=== PATIENT | female | born 1990 | race Two or more races ===

== ENCOUNTER 2025-02-02 08:28 | Outpatient (AMB) | payer MEDICAID, SELFPAY ==
[2025-02-02 08:39] VITALS: BP 105/70; PULSE 72; RESP 17; TEMP 36.3; O2SAT 98; BMI 19.2
--- NOTE | 2025-02-02 08:39 | OBCLNT_ITS ---
Vital Signs 02/02/25 08:39 Height 1.73 m Height Method Stated Weight 57.379 kg Weight Measurement Method Standing Scale BMI 19.2 BP 105/70 Blood Pressure Source Automatic Cuff Blood Pressure Location Right Upper Arm Position Sitting Respiration 17 Pulse 72 Pulse Source Monitor Temp 97.4 F Temp Source Temporal Artery Scan Pulse Oximetry (%) 98 Oxygen Delivery Method Room Air Allergies/Home Meds Allergies & Medications Allergies No Known Allergies Allergy (Verified 02/02/25 09:04) Medication Reconciliation Unobtainable 02/02/25 [History Confirmed 02/02/25] Intake Visit Data Collection New Patient or Established: New Patient (never been to [facility]) Reason for Visit:: OBI TRANSFER Seen by Clinical Staff ONLY (RN/MA): No Color Printer Operator Required: No Do You Feel Safe at Home: Yes Authorities Contacted: N/A PCP or OBGYN visit in last 3 months: No Hx Now: Yes Are you currently on any form of Control: No Last menstrual period: 05/27/24 Pain Present Currently: No Pain Scale Used: Kirkland-Cardona/Numerical Pain scale:: 0 Smoking Status Smoking Status: Never smoker Questionnaires Covid-19 Vaccine Questionnaire Has patient been vacinated for Covid-19 Have you been vacinated for Covid-19: No PHQ-9 PHQ-2 Over the last 2 weeks, how often have you been bothered by any of the following problems? 1. Little interest or pleasure in doing things: not at all 2. Feeling down, depressed, or hopeless: not at all Total score: 0 PHQ-9 3. Trouble falling or staying asleep, or sleeping too much: Not at all 4. Feeling tired or having little energy: Not at all 5. Poor appetite or overeating: Not at all 6. Feeling bad about yourself - or that you are a failure or have let yourself or your family down: Not at all 7. Trouble concentrating on things, such as reading the newspaper or watching television: Not at all 8. Moving or speaking so slowly that other people could have noticed? - Or the opposite - being so fidgety or restless that you have been moving around a lot more than usual: not at all 9. Thoughts that you would be better off or of hurting yourself in some way: Not at all Total score: 0 If you checked off any problems, how difficult have these problems made it for you to do your work, take care of things at home, or get along with other people?: not difficult at all Source: Developed by Drs. Tray Mistry, Kristine Linda, Darrick Montana and colleagues, with an educational charanjit from [employer]. Depression screen completed yes Social History Living Situation History Marital Status: Lives With: Family Housing: House Tobacco History Smoking Status: Never smoker Second Hand Smoke Exposure: No Domestic Abuse History Do You Feel Safe at Home: Yes History of Present Illness HPI Narrative This is a 34-year-old 2 para [address] Luther's office. Patient started care at 8 weeks. History of a previous section x 1 in [place] I asked the reason about that and the father had relayed to me that all women in [place] have . Patient is taking levothyroxine 50 mg daily for hypothyroid. Denies social habits. And patient reports she has not had any complications with the . Last menses is May 27, 2024. EDC March 03, 2025. First ultrasound was August 03, 2024. Patient was 9 weeks 2 and this confirmed dates. She also had a 25-week ultrasound November second 2024. Patient was 25 weeks 5 and this confirmed dates as well patient is O+, antibody screen negative, RPR nonreactive, rubella immune, hepatitis B negative, HIV negative, hep C negative, patient is rubella immune. Her GC and Chlamydia were negative. A1c 5.6. Her screenings for cystic fibrosis NIPT and AFP were negative. 1 hour was normal. GBS will be done today. Patient states that her last ultrasound at [facility] was January 16 and I called for those results. TSH normal, , T$: 16 OB Initial Visit OB Flowsheet OB Flowsheet Initial Weight: Not Recorded Date -?-?-?-?-?-?-?-?-?-?-?-?- EGA Weight BP Alb Glu CTX Pres Fundal ht FHR Mov Dilation Station Effacement Hx Notes Visit Note 02/02/25 -?-?-?-?-?-?-?-?-?-?-?-?- 35w 4d 57.379 kg 105/70 absent cephalic 35 145 active 34-year-old 2 para 1 for OBI. Patient is a transfer from Dr. Luther's office. Last menses was May 29, 2024. That makes EDC March 03, 2025. Patient has had several ultrasounds including 9-week ultrasound to confirm that. Previous section x 1 in [place]. The and the patient did not know why except to say that other women in [place] have C-sections. Patient has a history of hypothyroid. Her TSH was normal. T4 was little elevated. She is taking 50 mcg of levothyroxine daily. Denies leaking or bleeding. Reports good movement. And patient has no other complaints. GBS tod ay, schedule with OB to schedule repeat c/s. discuss labor precaution, fkc BID and ER precaution. continue PNV and levothyroxine 50 mg daily. RTC 1 week ob check Menstrual History Menstrual reliability: definite Flow: normal Menstrual regularity: regular Monthly: Yes Age at menarche: 14 On control pills at conception: No OB History : 4 Para: 1 Hx Total # of Abortions (Spontaneous & Elective): 2 # of Living Children: 1 Delivery History 1st : sex: male Delivery type: Infection History & Risk Evaluation History of STDs: none HIV risk evaluation: low risk Hepatitis B risk evaluation: low risk Varicella/chicken pox status: unknown Genetic Screening & History Genetic Screening/Teratology Counseling - Includes patient, baby's father, or anyone in either family with: 1. Patient's age 35 years or older as of estimated date of delivery: No 2. Thalassemia (Andorran, Citizen Of [place], Mediterranean, or Background); MCV less than 80: No 3. Neural Tube Defect (Meningomyelocele, Spina Bifida, or Anencephaly): No 4. Congenital Heart Defect: No 5. Down Syndrome: No 6. Jovany-Sachs (Ashkenazi Baptist, Cajun, Lao Vermilion): No 7. Ester Disease (Ashkenazi Baptist): No 8. Familial Dysautonomia (Ashkenazi Baptist): No 9. Sickle Cell Disease or Trait (): No 10. Hemophilia or other blood disorders: No 11. Muscular Dystrophy: No 12. Cystic Fibrosis: No 13. Ogden's Chorea: No 14. Mental Retardation/Autism: No 15. Other inherited genetic or chromosomal disorder: No 16. Maternal Metabolic Disorder (EG,TYPE 1 Diabetes, PKU): No 17. Patient or baby's father had a child with defects not listed above: No 18. Recurrent loss or a stillbirth: No 19. Medications (including supplements, vitamins, herbs or otc drugs)/illicit/recreational drugs/alcohol since last menstrual period: No 20. Any other: No Infection History 1. Live with someone with TB or exposed to TB: No 2. Rash or viral illness since last menstrual period: No 3. Hepatitis B,C: No Other (see comments) Source: [employer] Review of Systems Review of Systems Systems Reviewed: All systems reviewed, normal except as documented Exam Narrative Physical exam: low transverse skin incision General Limitations: no limitations General Appearance: alert, in no apparent distress, comfortable, cooperative, healthy appearing, well developed and well groomed Head Head exam: atraumatic, normocephalic and normal inspection Chest Chest inspection: Present normal inspection and symmetric chest wall rise Resp Respiratory exam: Present normal lung sounds bilaterally Card Cardiovascular exam: Present regular rate, normal rhythm and normal heart sounds Abdominal Abdominal exam: Present soft and normal bowel sounds Psych Psychiatric exam: Present normal affect and normal mood Office Procedures OB Clinic LOC & Office Proc's Nursing/Assessment Patient Status: Initial/New Patient OB Clinic Nursing Assessment: Medication Reconciliation, Update PMH in EMR and Vital Signs OB Clinic Coordination of Care: Complex Care and Chronic Disease 1-5, Consent,records obtained, informed consent, Education Simp Pt/Fam, Lab and Imaging orders, Results/Orders obtained and Staff clarify orders Special Needs: Heart tones New Patient Charge New Patient Point Assignment: [id number] New Patient Point Charge: PHYSIOLOGIST Level 4 ([id number]) Assessment & Plan Diagnosis / Problem List (1) Encounter for care in third trimester of first : Status: Acute (2) Encounter for maternal care for low transverse scar from previous delivery: Status: Acute (3) : Status: Acute Plan Discussed kick count with patient. Discussed labor precautions with patient. Schedule with OB next visit to schedule section reviewed chart and labs with patient. GBS today return in 1 week Additional Plan Follow Up: 1 Week (obc)
== END 2025-02-02 09:00 | disposition home or self-care (01) ==
PROVIDERS: Supervising Provider Obstetrics & Gynecology; Visit Provider Obstetrics & Gynecology
DX: O09.293 Supervision of pregnancy with other poor reproductive or obstetric history, third trimester (principal); O34.211 Maternal care for low transverse scar from previous cesarean delivery; O09.893 Supervision of other high risk pregnancies, third trimester; O99.283 Endocrine, nutritional and metabolic diseases complicating pregnancy, third trimester; E03.9 Hypothyroidism, unspecified; Z3A.35 35 weeks gestation of pregnancy; Z36.85 Encounter for antenatal screening for Streptococcus B; Z79.890 Hormone replacement therapy
CPT/HCPCS: 99204; G0463

== ENCOUNTER 2025-02-08 09:53 | Outpatient (AMB) | payer MEDICAID, SELFPAY ==
[2025-02-08 10:14] VITALS: BP 106/73; PULSE 65; RESP 17; TEMP 36.2; O2SAT 99; BMI 19.1
--- NOTE | 2025-02-08 10:14 | AMB.OBVISIT ---
Vital Signs 02/08/25 10:14 Height 1.73 m Height Method Measured Weight 57.379 kg Weight Measurement Method Standing Scale BMI 19.1 BP 106/73 Blood Pressure Source Automatic Cuff Blood Pressure Location Right Upper Arm Position Sitting Respiration 17 Pulse 65 Pulse Source Monitor Temp 97.2 F Temp Source Temporal Artery Scan Pulse Oximetry (%) 99 Oxygen Delivery Method Room Air Allergies/Home Meds Allergies & Medications Allergies No Known Allergies Allergy (Verified 02/08/25 10:15) Medication Reconciliation Unobtainable 02/02/25 [History Confirmed 02/08/25] Intake Visit Data Collection New Patient or Established: Established Patient (seen at [facility] within 3 years) Reason for Visit:: OBC Consent obtained for Telemed Visit: No Seen by Clinical Staff ONLY (RN/MA): No Plating Foreman Required: No Do You Feel Safe at Home: Yes Authorities Contacted: N/A PCP or OBGYN visit in last 3 months: Yes Hx Now: Yes Are you currently on any form of Control: No Pain Present Currently: No Pain Scale Used: Kirkland-Cardona/Numerical Pain scale:: 0 Smoking Status Smoking Status: Never smoker Questionnaires Covid-19 Vaccine Questionnaire Has patient been vacinated for Covid-19 Have you been vacinated for Covid-19: No PHQ-9 PHQ-2 Over the last 2 weeks, how often have you been bothered by any of the following problems? 1. Little interest or pleasure in doing things: not at all PHQ-9 8. Moving or speaking so slowly that other people could have noticed? - Or the opposite - being so fidgety or restless that you have been moving around a lot more than usual: not at all Source: Developed by Drs. Tray Mistry, Kristine Linda, Darrick Montana and colleagues, with an educational charanjit from [employer] ([employer]). Social History Living Situation History Lives With: Family Housing: House Tobacco History Smoking Status: Never smoker Second Hand Smoke Exposure: No Alcohol History Alcohol Intake: Never Domestic Abuse History Do You Feel Safe at Home: Yes History of Present Illness HPI Narrative The patient is a 34-year-old -0-1-1 history of x 1 in [place] about 2 years ago. Patient's states it was due to IVF. She had 1 miscarriage. She is currently 36 to 37 weeks . Patient understands some Guyanese her is translating for her. Care OB Visit Log OB Flowsheet Initial Weight: Not Recorded Date <del>?</del> EGA Weight BP Alb Glu CTX Pres Fundal ht FHR Mov Dilation Station Effacement Hx Notes Visit Note 02/02/25 <del>?</del> 35w 4d 57.379 kg 105/70 absent cephalic 35 145 active 34-year-old 2 para 1 for OBI. Patient is a transfer from Dr. Luther's office. Last menses was May 29, 2024. That makes EDC March 03, 2025. Patient has had several ultrasounds including 9-week ultrasound to confirm that. Previous section x 1 in [place]. The and the patient did not know why except to say that other women in [place] have C-sections. Patient has a history of hypothyroid. Her TSH was normal. T4 was little elevated. She is taking 50 mcg of levothyroxine daily. Denies leaking or bleeding. Reports good movement. And patient has no other complaints. GBS today, schedule with OB to schedule repeat c/s. discuss labor precaution, fkc BID and ER precaution. continue PNV and levothyroxine 50 mg daily. RTC 1 week ob check 02/08/25 <del>?</del> 36w 3d 57.379 kg 106/73 absent cephalic 37 146 active Positive movement, no contractions, no loss of fluids Schedule repeat 02/24/2025 AQUILES Calculator Estimated Delivery Date Method Current WG Current Estimate 03/05/25 LMP (Certain) 36w 3d Other Estimates 03/09/25 Ultrasound #2 35w 6d Notes Visit Date: 02/08/25 Last Updated by: Clemencia Maria (OB Clinic)MD Good movement no loss of fluids no contractions. Will schedule with myself 02/24/2025. Due date 03/03/2025. Need results of [facility] ultrasound from end of December. Visit Date: 02/02/25 Last Updated by: Linda Buchanan, JOSEY 34 yo , c/s x1. EDC 03/03/25. ob panel: O+,abs-, RPR::NR, rub imm, hbsag-, HIV-,HC-, GC/CT-, 1hr gtt: 120, A1: 5.2, NIPT/AFP and carrier screen- Office Procedures OB Clinic LOC & Office Proc's Nursing/Assessment Patient Status: Established Patient OB Clinic Nursing Assessment: Medication Reconciliation, Update PMH in EMR and Vital Signs OB Clinic Coordination of Care: Complex Care and Chronic Disease 1-5, Consent,records obtained, informed consent, Education Simp Pt/Fam and 4+ Authorizations needed Special Needs: Heart tones Established Patient Charge Established Patient Point Assignment: 130 Established Patient Point Charge: EP Level 4 (120-155) Assessment & Plan Diagnosis / Problem List (1) : Status: Acute Qualifiers: Weeks of gestation: 36 weeks Qualified Code(s): Z3A.36 - 36 weeks gestation of (2) Encounter for maternal care for low transverse scar from previous delivery: Status: Acute Assessment and Plan: Schedule repeat at 39 weeks on 02/24/2025
== END 2025-02-08 10:52 | disposition home or self-care (01) ==
LOC: HODSOBC 09:53
PROVIDERS: PCP Obstetrics & Gynecology; Referring Provider Obstetrics & Gynecology; Supervising Provider Obstetrics & Gynecology; Visit Provider Obstetrics & Gynecology
DX: O09.293 Supervision of pregnancy with other poor reproductive or obstetric history, third trimester (principal); O34.211 Maternal care for low transverse scar from previous cesarean delivery; Z3A.36 36 weeks gestation of pregnancy
CPT/HCPCS: 99214; G0463

== ENCOUNTER 2025-02-11 10:38 | Observation (INO) | payer MEDICAID, SELFPAY ==
[2025-02-11 11:10] VITALS: BP 106/65; PULSE 75; RESP 18; RESP 99; TEMP 36.7; BMI 19.1
[2025-02-11 11:15] VITALS: BP 106/65; PULSE 75
[2025-02-11 11:20] LABS: Rupture of Fetal Membranes Negative (Negative)
[2025-02-11 11:21] LABS: ROM Kit Exp Date# 11/15/2027; ROM Kit Lot # 58102387
[2025-02-11 11:22] LABS: ROM Swab Mixed By: RN; Swb Mxed in Solvent 1 min? Yes
== END 2025-02-11 11:30 | disposition home or self-care (01) ==
PROVIDERS: Admitting Provider Obstetrics & Gynecology; Visit Provider Obstetrics & Gynecology
DX: Z34.83 Encounter for supervision of other normal pregnancy, third trimester (principal); Z3A.38 38 weeks gestation of pregnancy
CPT/HCPCS: 59899; 84112

== ENCOUNTER 2025-02-15 11:27 | Observation (INO) | payer MEDICAID, SELFPAY ==
[2025-02-15 11:33] VITALS: BP 90/54; PULSE 68; RESP 16; TEMP 36.7; O2SAT 100
[2025-02-15 11:36] VITALS: BMI 19.3
--- NOTE | 2025-02-15 11:36 | XR_ITS ---
Examination: Complete OB ultrasound greater than 14 weeks Date and time of exam: February 15, 2025 1213 hours INDICATIONS: Unknown size and dates, clinical diagnosis altered quadrants Findings: Viable intrauterine single fetus with single amniotic sac presentation cephalic Cardiac motion 122 BPM Placenta posterior grade 2 Umbilical cord insertion 3 vessel seen Amniotic fluid index 7.7 cm spine posterior Cervix 3.6 cm Ovaries obscured by bowel gas Composite estimated gestational age based on BPD, head circumference, abdominal circumference, femur length is 34 weeks 2 days Estimated weight 2136 g. Survey of intracranial anatomy, spinal anatomy, abdominal anatomy, four-chamber heart performed with no abnormalities identified. Impression: Viable intrauterine gestation cephalic presentation Amniotic fluid index 7.7 cm.
[2025-02-15 11:40] VITALS: BP 90/54; PULSE 68; RESP 100; RESP 16; TEMP 36.7
== END 2025-02-15 13:00 | disposition home or self-care (01) ==
PROVIDERS: Admitting Provider Obstetrics & Gynecology; Visit Provider Obstetrics & Gynecology
DX: Z34.93 Encounter for supervision of normal pregnancy, unspecified, third trimester (principal); Z3A.34 34 weeks gestation of pregnancy
CPT/HCPCS: 59025; 59899; 76805

== ENCOUNTER 2025-02-24 03:21 | Inpatient (IN) | payer MEDICAID, SELFPAY ==
[2025-02-24] VITALS (17 sets, daily range): BP systolic 91–121; BP diastolic 55–85; PULSE 61–92; RESP 14–20; TEMP 36.5–36.8; O2SAT 96–99; BMI 18.2
[2025-02-24] MEDS: RINGERS LACTATED 1000 ML 1,000 ML 100 ML IV (03:40)
[2025-02-24 04:35] LABS: Basophils # (Auto) 0.0 Thou/mm3 (0.0-0.2); Basophils % (Auto) 1 % (0-2.5); Eosinophils # (Auto) 0.1 Thou/mm3 (0.0-0.5); Eosinophils % (Auto) 2 % (0-10); Hematocrit 40.5 % (36.0-46.0); Hemoglobin 13.2 g/dL (12.0-16.0); Immature Granulocytes Auto 0.10 Thou/mm3 (0.00-0.00); Lymphocytes # (Auto) 1.9 Thou/mm3 (1.0-4.8); Lymphocytes % (Auto) 23 % (10-50); Mean Corpuscular HGB Conc 32.6 g/dl (31.0-37.0); Mean Corpuscular Hemoglobin 27.0 pg (25.0-35.0); Mean Corpuscular Volume 83 fL (80-100); Monocytes # (Auto) 0.8 Thou/mm3 (0.0-0.8); Monocytes % (Auto) 9 % (0-12); Neutrophils # (Auto) 5.6 Thou/mm3 (1.8-7.7); Neutrophils % (Auto) 65 % (37-80); Nucleated Red Blood Cell # 0.00 Thou/mm3 (0.00-0.00); Nucleated Red Blood Cell % 0 /100 WBC (0); Platelet Count 291 Thou/mm3 (140-440); RDW Standard Deviation 39.7 fL (36.4-46.3); Red Blood Count 4.89 Miln/mm3 (4.00-5.20); White Blood Count 8.6 Thou/mm3 (3.6-11.0)
[2025-02-24 04:55] LABS: Syphilis Nonreactive (Nonreactive)
[2025-02-24] MEDS: ceFAZolin/D5W 2 GM IV 2 GM/100 ML BAG IV (07:19)
[2025-02-24] MEDS: FAMOTIDINE INJ 10 MG/ML VIAL 2 ML 20 MG IV (07:19)
[2025-02-24] MEDS: METOCLOPRAMIDE INJ 5 MG/ML VIAL 2 ML 10 MG IVP (07:33)
--- NOTE | 2025-02-24 10:07 | PD.GYNPROC ---
Operative Note - CONTROL CHEMIST Procedure Date of procedure: 02/24/25 Procedure Performed: Repeat low-transverse section Indication: The patient is a 34-year-old -0-0-1 history of section x 1 in [place]. She has an undocumented scar. She presents at 39 weeks for scheduled elective repeat section. Pre-Op diagnosis: 1. IUP 39 weeks 2. Previous , for elective repeat. Post-Op diagnosis: Same Anesthesia type: Spinal (Spinal did not work. Patient went under general anesthesia) Procedure description: After obtaining informed consent, the patient was brought back to the operating room and spinal anesthesia was placed. She was then prepped and draped in the dorsal supine position with a leftward tilt in a normal sterile fashion. A Holt catheter was inserted the patient's bladder. Patient was given 2 g of Ancef by anesthesia. Upon testing the patient, she felt every little touch. Anesthesia did not want to try another spinal and instead the patient was placed under general anesthesia via mask. A Pfannenstiel skin incision was made and her prior scar removed with a scalpel. This was carried down to the underlying fascia. The fascia was incised in midline, and the fascial incision extended laterally using Elizabeth scissors. The superior aspect of the fascia was grasped with Caroline clamps, and the underlying rectus muscles dissected off using blunt and sharp dissection. This was repeated in the infra aspect the incision. The rectus muscles were midline and the peritoneum entered sharply with a scalpel. This was extended superiorly and inferiorly good visualization of the bladder. The bladder blade was inserted the uterus was incised in a low transverse fashion using a scalpel above the bladder reflection. The uterine incision was extended laterally using blunt dissection with the surgeon's fingers. The bag corea ruptured and clear fluid was noted. The bladder blade was removed and the infant was delivered atraumatically in a cephalic presentation. The cord was clamped and cut after waiting approximately 30 seconds and the was handed off to the waiting pediatric staff. Of note the baby was vigorously crying at . Cord blood and cord gases were sent. The placenta was then manually removed and the uterus exteriorized and cleared of all clots and debris. The uterine incision was repaired using 0 Monocryl in a running locked fashion. Excellent hemostasis was noted. The uterus was returned to the patient's abdominal cavity, and copious irrigation carried out with warm normal saline. The uterine incision was reexamined and noted be hemostatic. Secondary some oozing on those beefy red implants on the uterus, hemostatic powder was called for and surgery Surgicel was placed on the uterus to obtain excellent hemostasis. After ensuring the rectus muscle was hemostatic these reapproximated in a running fashion using 0 Monocryl. The fascia was closed with 0 Vicryl in a running fashion. Subcutaneous tissues were irrigated found to be hemostatic these were reapproximate using 4 [id number] sutures of 2-0 chromic. The skin was closed with a subcuticular suture of 4-0 Monocryl. The patient tolerated the procedure well, sponge, lap, needle, and instrument counts were found to be complete x 2. The patient was awakened and went to recovery room in stable condition. Of note the baby was doing very well at the time of dictation. Fluids: crystalloid Fluid amount (mL): 2,500 Urine output (mL): 800 Specimen: none Implants: None Estimated blood loss (ml): 400 Findings: Liveborn male, OA presentation, no nuchal cord or meconium. Apgars were 8 and 9. Weight was 5 pounds 14 ounces. The placenta was complete spontaneous grossly normal. Fallopian tubes and ovaries appeared grossly normal. Patient had a large amount of scar tissue posteriorly involving her lower uterine segment and the bowel. Her anterior lower uterine segment was thin. No window was noted. There was not a lot of scar tissue present the patient's abdomen however patient had a lot of beefy red implants on her uterus that bled easily to the touch. Complications: none Surgical staff Operation Date: 02/24/25 08:14 Case Staff FERRIS WHEEL ATTENDANT: Jason Khan RN First Assistant: Mal Pastor Diagnosis Discharge Diagnosis (1) Encounter for maternal care for low transverse scar from previous delivery: Status: Acute Problem details: Patient underwent an uncomplicated repeat low-transverse section under general anesthesia 02/24/2025 at approximately 8:00 in the morning. EBL was 400 cc. Problem List Completed Was Problem List Reviewed/Reconciled?: Yes
--- NOTE | 2025-02-24 10:17 | PD.LDDELS ---
Data ([facility]) Data Hx Section: Yes Maternal Blood Type: O Pos Rubella Titre: Positive RPR: Non-reactive Labs: Negative: RPR, Hepatitis B, HIV, Chlamydia and Gonorrhea and Unknown: Group Beta Strep : 4 Term: 0 : 1 Livin Abortions: Spontaneous & Theraputic: 2 Delivery Data ([facility]izcarra) Labor Data ROM date: 02/24/25 ROM time: 02:40 Amniotic membrane rupture type: Spontaneous Amniotic fluid description: Clear Delivery Data EDC: 03/03/25 EDC calculated by:: LMP/early US confirmation Date of arrival to unit: 02/24/25 Time of arrival to unit: 04:00 Onset of labor date: 02/24/25 Onset of labor time: 04:00 [place] delivery date: 02/24/25 [place] delivery time: 08:17 Gestational age (weeks): 39 Gestational age (days): 0 Placenta delivery date: 02/24/25 Placenta delivery time: 08:18 Delivered by: Clemencia Maria (OB Clinic) Delivery nurse: Erma Dinkey Operator Slate at delivery: No Support person(s) at delivery: None Anesthesia Type Anesthesia type: Spinal (Spinal did not work. Patient went under general anesthesia)
[2025-02-24] MEDS: OXYTOCIN in NS 20 units 20 UNIT/1,000 ML BAG 125 UNIT IV ×2 (10:18→18:27)
[2025-02-24] MEDS: HYDROmorphone INJ 2 MG/ML VIAL 1 MG IVP (10:22)
[2025-02-24] MEDS: KETOROLAC INJ 30 MG/ML VIAL IVP ×2 (17:29→23:56)
--- NOTE | 2025-02-24 19:37 | PD.LDDELS ---
Data ([facility]) Data Hx Section: Yes Maternal Blood Type: O Pos Rubella Titre: Positive RPR: Non-reactive Labs: Negative: RPR, Hepatitis B, HIV, Chlamydia, Gonorrhea and Group Beta Strep : 4 Term: 1 : 0 Livin Abortions: Spontaneous & Theraputic: 2 Delivery Data ([facility]ra) Labor Data Induction/Augmentation Agent: None ROM date: 02/24/25 ROM time: 02:40 Amniotic membrane rupture type: Spontaneous Amniotic fluid description: Clear Delivery Data EDC: 03/03/25 EDC calculated by:: LMP/early US confirmation Date of arrival to unit: 02/24/25 Time of arrival to unit: 04:00 delivery date: 02/24/25 [place] delivery time: 08:17 Gestational age (weeks): 39 Gestational age (days): 0 Placenta delivery date: 02/24/25 Placenta delivery time: 08:18 Delivered by: dr woodall Delivery nurse: gene Sainz nurse: Danielle VEGA Feller Buncher Operator at delivery: No Support person(s) at delivery: fob Other staff at delivery: OR staff Delivery Method Delivery method: Low Transverse Presentation: Vertex position: OA Anesthesia Type Anesthesia Type: General and Spinal Anesthesia type: Spinal (Spinal did not work. Patient went under general anesthesia) Delivery Room Medications Delivery room medications: Pitocin 20 u IV Placenta Placenta delivery description: Manual Removal Cord blood sent to lab: Yes cord blood collection: Cord Blood Type, Arterial Cord Blood Gas and Venous Cord Blood Gas Episiotomy Episiotomy description: None EBL Estimated blood loss (ml): 400 Umbilical Cord cord description: 3 Vessels Additional Procedures See op report for further details Complications Complications: None Data ([facility]carra) Harper Data order: 1 Harper's gender: Male Identification band number: [id number] weight (gms): 2660 g Weight (pounds): 5 lbs and 13.8 ozs [place] length: 49 cm 1 minute: 8 5 minutes: 9
[2025-02-24] MEDS: ONDANSETRON INJ 2 MG/ML INJ 2 ML 4 MG IV (21:27)
--- NOTE | 2025-02-24 21:41 | PD.LDHP ---
Documentation for date of: 02/24/25 OB Labor/Induct. HPI History of Present Illness Chief complaint: Schedule repeat : 4 Para: 1 Term pregnancies: 1 pregnancies: 0 Living children: 1 History of Abortions: Spontaneous and Elective: 2 History of Vaginal deliveries: 0 History of sections: Yes History of : No Date of last menstrual period: 05/27/24 AQUILES: 03/03/25 Gestational Age (weeks): 39 Gestational age based on last menstrual period: 39 History of present illness: The patient is a 34-year-old -0-2-1 with an EDC of 03/03/2025 who is 39-0/7 weeks who presented to labor and delivery reporting ruptured membranes around 240 in the morning. She was not suzan or bleeding. She was found to be grossly ruptured. She was already scheduled at 7 AM for a repeat with Dr Maria. She was admitted by Dr De Paz. History of Present Dating criteria: LMP confirmed by 1st trimester US Adequate Care: Yes Ultrasounds: normal mid trimester US Obstetrical complications: none Medical complications: none Labs Maternal Blood Type: O Pos Labs: Positive: Rubella Titre, Negative: RPR, Hepatitis B, HIV, Chlamydia, Gonorrhea and Group Beta Strep and Unknown: Herpes Type 1, Herpes Type 2 and Covid-19 Past Medical History Surgical History SURGICAL: Positive Section Past Medical History Comments PMH COMMENT: Patient denies significant medical problems. She had a history of a in [place] 2 to 3 years ago. Meds Home Medications and Allergies Home Medications ?Medication ?Instructions ?Recorded ?Confirmed ?Type levothyroxine 50 mcg tablet mcg 02/24/25 History Allergies Allergy/AdvReac Type Severity Reaction Status Date / Time Clomefine Allergy Rash Uncoded 02/24/25 04:36 OB Exam Physical Exam Vital signs: Temp Pulse Resp BP Pulse Ox O2 Del Method O2 Flow Rate 97.8 F 68 16 109/71 97 Room Air 2 02/24/25 19:02/24/25 19:02/24/25 19:02/24/25 19:02/24/25 19:02/24/25 15:00 02/24/25 10:50 Constitutional Constitutional: no acute distress Routine Neck Exam Neck: Present supple and trachea midline Routine Cardiovascular Exam Cardiovascular: Present RRR Routine Abdominal Exam Abdominal: Present soft and normoactive bowel sounds Comments: Patient has a well-healed Pfannenstiel scar present Detailed Labor and Delivery Exam Membranes: ruptured Amniotic fluid: clear monitor accelerations: 15x15 monitor decelerations: None swaging machine operator variability: Moderate (11-25) Contraction frequency (min): Irregular Tachysystole: No Contraction intensity: Mild Routine Extremities Exam Extremities: Present full ROM Routine Skin Exam Skin: Present intact, dry and warm Routine Psychiatric Exam Psychiatric: Present normal affect and normal thought process OB Results Labs 02/24/25 03:44 Labs: Short CBC 02/24/25 Range/Units 03:44 WBC 8.6 (3.6-11.0) Thou/mm3 Hgb 13.2 (12.0-16.0) g/dL Hct 40.5 (36.0-46.0) % Plt Count 291 (140-440) Thou/mm3 OB Assessment & Plan Assessment and Plan (1) Encounter for maternal care for low transverse scar from previous delivery: Status: Acute Assessment and plan: Patient is consented for repeat low-transverse section. The risks of the procedure were discussed with patient including the risk of bleeding, infection, blood transfusion, damage to bowel bladder blood vessels other organs. Prolonged hospital stay and further surgery should any of the above occur. All questions were answered and all consents were signed.
[2025-02-25 04:50] VITALS: BP 104/68; PULSE 70; RESP 16; TEMP 36.5; O2SAT 97
[2025-02-25] MEDS: KETOROLAC INJ 30 MG/ML VIAL IVP ×4 (05:26→23:50)
[2025-02-25 06:03] LABS: Basophils # (Auto) 0.1 Thou/mm3 (0.0-0.2); Basophils % (Auto) 1 % (0-2.5); Eosinophils # (Auto) 0.2 Thou/mm3 (0.0-0.5); Eosinophils % (Auto) 2 % (0-10); Hematocrit 37.6 % (36.0-46.0); Hemoglobin 12.4 g/dL (12.0-16.0); Immature Granulocytes Auto 0.08 Thou/mm3 (0.00-0.00); Lymphocytes # (Auto) 1.4 Thou/mm3 (1.0-4.8); Lymphocytes % (Auto) 12 % (10-50); Mean Corpuscular HGB Conc 33.0 g/dl (31.0-37.0); Mean Corpuscular Hemoglobin 27.9 pg (25.0-35.0); Mean Corpuscular Volume 85 fL (80-100); Monocytes # (Auto) 0.6 Thou/mm3 (0.0-0.8); Monocytes % (Auto) 5 % (0-12); Neutrophils # (Auto) 9.1 Thou/mm3 (1.8-7.7); Neutrophils % (Auto) 79 % (37-80); Nucleated Red Blood Cell # 0.00 Thou/mm3 (0.00-0.00); Nucleated Red Blood Cell % 0 /100 WBC (0); Platelet Count 232 Thou/mm3 (140-440); RDW Standard Deviation 41.0 fL (36.4-46.3); Red Blood Count 4.45 Miln/mm3 (4.00-5.20); White Blood Count 11.5 Thou/mm3 (3.6-11.0)
[2025-02-25 07:55] VITALS: BP 100/62; PULSE 75; RESP 20; TEMP 36.7; O2SAT 97
--- NOTE | 2025-02-25 08:42 | PD.LDDS ---
DS: Providers Provider Date of admission: 02/24/25 03:21 Primary care physician: Physician No Primary/Family Admitting Provider: Clemencia [facility] MD ([facility]) Attending Provider on Admission: Clemencia Maria MD ([facility]) Consults: 02/24/25 08:42 Referral Routine Comment: Attending Provider on DC: Mounika Mariano MD Discharging Provider: Mounika Mariano MD DS: Diagnosis Discharge Diagnosis (1) Encounter for maternal care for low transverse scar from previous delivery: Status: Acute (2) : Status: Acute Problem List Completed Was Problem List Reviewed/Reconciled?: Yes Summary/Hosp Course Brief History: The patient is a 34-year-old -0-2-1 with an EDC of 03/03/2025 who is 39-0/7 weeks who presented to labor and delivery reporting ruptured membranes around 240 in the morning. She was not suzan or bleeding. She was found to be grossly ruptured. She was already scheduled at 7 AM for a repeat with Dr Maria. She was admitted by Dr De Paz. Peripartum Data Delivery Method: Low Transverse Episiotomy Description: None Procedures: Procedures Operation Date: 02/24/25 08:14 Actual Procedure Side Surgeon p in OB Not Applicable Clemencia Maria ([facility])MD complications: none Status at Discharge Cognitive/behavioral status at discharge: <del>normal</del> Functional status at discharge: independent ambulation Overall status at discharge: patient is progressing back to baseline Time Spent with Patient Time attestation: Total time spent providing and/or coordinating discharge services: Time spent: Less than 30 minutes Exam Vital Signs Temp Pulse Resp BP Pulse Ox O2 Del Method O2 Flow Rate 98.1 F 75 20 100/62 97 Room Air 2 02/25/25 07:55 02/25/25 07:55 02/25/25 07:55 02/25/25 07:55 02/25/25 07:55 02/25/25 07:55 02/24/25 10:50 Narrative Exam Alertx 3 chest Clear , normal HR abdomen soft , BS present Incision C,D and intact vaginal bleeding light no calf tenderness , no uterine fundal tenderness , uterus fir Routine Respiratory Exam Respiratory: Present chest non-tender, lungs clear, normal breath sounds, no resp distress and CTA bilaterally Routine Cardiovascular Exam Cardiovascular: Present RRR Routine Abdominal Exam Abdominal: Present soft and normoactive bowel sounds Routine Extremities Exam Extremities: Present full ROM and pulses intact Routine Skin Exam Skin: Present intact and normal turgor Routine Neurological Exam Neurological: Present alert, oriented X3, normal reflexes and normal speech Routine Psychiatric Exam Psychiatric: Present normal affect, cooperative, good insight and good judgment Discharge Plan Plan Patient Disposition: HOME (Self Care) Disposition Comment: stable Prescriptions/Referrals Prescriptions/Med Rec: New acetaminophen 325 mg Tablet 650 mg PO Q6HR PRN (Reason: Patient rated pain of 3) Qty: 30 0RF hydrocodone-acetaminophen 5-325 mg Tablet 1 tab PO Q6HR MDD 4 tab PRN (Reason: Pain Scale 4-6 (Moderate) Qty: 14 0RF docusate sodium 100 mg Capsule 100 mg PO QDAY Qty: 10 0RF magnesium hydroxide [Milk of Magnesia] 400 mg/5 mL Suspension 30 ml PO PRNMRX1 PRN (Reason: Constipation) Qty: 355 0RF hydrocodone-acetaminophen 5-325 mg tablet 1 tab PO Q6H MDD 4 PRN (Reason: pain) Qty: 14 0RF Continued levothyroxine 50 mcg tablet Referrals: No Primary/Family,Physician [Primary Care Provider] - Patient/Caregiver Discharge Instructions Education Materials: C Section Dc Print Language: Wolof Stand Alone Forms: Jess Award Info., Patient Portal Info Letter, DC from Surgery Discharge Order Discharge Orders: Discharge (Routine); Ordered 02/25/25 Ordered By: Mounika Mariano Planned Discharge Date 02/25/25/ patient wants to go home today , can go after passage of flatus (2) Qualifiers: Weeks of gestation: 37 weeks Qualified Code(s): Z3A.37 - 37 weeks gestation of
[2025-02-25] MEDS: DOCUSATE SOD 100 MG CAPSULE PO (08:54)
[2025-02-25 16:30] VITALS: BP 105/70; PULSE 83; RESP 15; TEMP 36.8; O2SAT 99
[2025-02-25 19:30] VITALS: BP 102/68; PULSE 75; RESP 16; TEMP 36.8; O2SAT 99
[2025-02-26 04:00] VITALS: BP 95/60; PULSE 67; RESP 16; TEMP 36.4; O2SAT 98
[2025-02-26] MEDS: KETOROLAC INJ 30 MG/ML VIAL IVP (05:41)
[2025-02-26 07:59] VITALS: BP 93/64; PULSE 62; RESP 16; TEMP 36.9; O2SAT 97
[2025-02-26] MEDS: DOCUSATE SOD 100 MG CAPSULE PO (09:13)
--- NOTE | 2025-02-26 10:05 | PD.LDDS ---
DS: Providers Provider Date of admission: 02/24/25 03:21 Primary care physician: Physician No Primary/Family Admitting Provider: Clemencia [facility] MD ([facility]) Attending Provider on Admission: Clemencia Maria MD ([facility]) Consults: 02/24/25 08:42 Referral Routine Comment: Attending Provider on DC: Mounika Mariano MD Discharging Provider: Mounika Mariano MD Anticipated date of discharge: 02/26/25 DS: Diagnosis Discharge Diagnosis (1) Encounter for maternal care for low transverse scar from previous delivery: Status: Acute (2) : Status: Acute (3) Encounter for care in third trimester of first : Status: Acute (4) delivery delivered: Status: Acute Problem List Completed Was Problem List Reviewed/Reconciled?: Yes Summary/Hosp Course Brief History: The patient is a 34-year-old -0-2-1 with an EDC of 03/03/2025 who is 39-0/7 weeks who presented to labor and delivery reporting ruptured membranes around 240 in the morning. She was not suzan or bleeding. She was found to be grossly ruptured. She was already scheduled at 7 AM for a repeat with Dr Maria. She was admitted by Dr De Paz. Peripartum Data Delivery Method: Low Transverse Episiotomy Description: None Procedures: Procedures Operation Date: 02/24/25 08:14 Actual Procedure Side Surgeon p in OB Not Applicable Clemencia Maria ([facility])MD Status at Discharge Functional status at discharge: independent ambulation Overall status at discharge: patient is progressing back to baseline Time Spent with Patient Time attestation: Total time spent providing and/or coordinating discharge services: Time spent: Less than 30 minutes Exam Vital Signs Temp Pulse Resp BP Pulse Ox O2 Del Method O2 Flow Rate 98.5 F 62 16 93/64 97 Room Air 2 02/26/25 07:59 02/26/25 07:59 02/26/25 07:59 02/26/25 07:59 02/26/25 07:59 02/26/25 07:59 02/24/25 10:50 Narrative Exam Patient is postop day 2 alert and oriented. Vital signs are stable , chest clear , no chest pain or shortness of breath .ambulating independently voiding spontaneously and is passing flatus. She is wanting to breast-feed and trying Lochia is minimal uterus is firm fundus nontender incision is clean dry intact Surgical wound care discussed Patient will follow-up with her OB physician Answered all her questions Routine Neurological Exam Neurological: Present alert, oriented X3 and normal speech Routine Psychiatric Exam Psychiatric: Present normal affect, normal thought process and cooperative Discharge Plan Plan Patient Disposition: HOME (Self Care) Disposition Comment: stable Prescriptions/Referrals Prescriptions/Med Rec: New acetaminophen 325 mg Tablet 650 mg PO Q6HR PRN (Reason: Patient rated pain of 3) Qty: 30 0RF hydrocodone-acetaminophen 5-325 mg Tablet 1 tab PO Q6HR MDD 4 tab PRN (Reason: Pain Scale 4-6 (Moderate) Qty: 14 0RF docusate sodium 100 mg Capsule 100 mg PO QDAY Qty: 10 0RF magnesium hydroxide [Milk of Magnesia] 400 mg/5 mL Suspension 30 ml PO PRNMRX1 PRN (Reason: Constipation) Qty: 355 0RF hydrocodone-acetaminophen 5-325 mg tablet 1 tab PO Q6H MDD 4 PRN (Reason: pain) Qty: 14 0RF hydrocodone-acetaminophen 5-325 mg tablet 1 tab PO Q6H MDD 4 tabs PRN (Reason: pain) Qty: 14 0RF Continued levothyroxine 50 mcg tablet Referrals: No Primary/Family,Physician [Primary Care Provider] - Patient/Caregiver Discharge Instructions Discharge Activity: activity as tolerated Other Discharge Activity Instructions:: pelvic rest x 6 weeks do not lift weight over 10 lbs x 4 weeks follow up with her OB in 1 week Education Materials: : Caring for Yourself, C Section Dc Print Language: Nepalese Activity Restrictions/Additional Instructions: pelvic rest x 6 weeks do not lift weight over 10 lbs x 4 weeks follow up with her OB in 1 week Stand Alone Forms: Jess Award Info., Patient Portal Info Letter, DC from Surgery Discharge Order Discharge Orders: Discharge (Routine); Ordered 02/26/25 Ordered By: Mounika Mariano Planned Discharge Date 02/26/25 (2) Qualifiers: Weeks of gestation: 37 weeks Qualified Code(s): Z3A.37 - 37 weeks gestation of
== END 2025-02-26 12:03 | disposition home or self-care (01) | DRG 540 ==
LOC: S4SX 08:09 → S4NX 08:19
PROVIDERS: Specialist; Admitting Provider Obstetrics & Gynecology; Visit Provider Obstetrics & Gynecology
PROC: 10D00Z1 Extraction of Products of Conception, Low, Open Approach (ICD-10-PCS; CPT 59514; principal; 2025-02-24 07:30)
DX: O34.211 Maternal care for low transverse scar from previous cesarean delivery (principal); O42.92 Full-term premature rupture of membranes, unspecified as to length of time between rupture and onset of labor; Z37.0 Single live birth; Z3A.39 39 weeks gestation of pregnancy; O99.284 Endocrine, nutritional and metabolic diseases complicating childbirth; E03.9 Hypothyroidism, unspecified; Z79.890 Hormone replacement therapy; Z88.8 Allergy status to other drugs, medicaments and biological substances
CPT/HCPCS: 36415; 84112; 85025; 86780; 86850; 86900; 86901; A4314; A4649; J0689; J1171; J1885; J2274; J2371; J2405; J2590; J2704; J2765; J3010; J3490; J7120; A9270; J2270